=== PATIENT | female | born 1985 | race African-American/Black ===

== ENCOUNTER 2020-06-10 20:36 | Emergency (ER) | payer MEDICAID ==
[~2020-06-10] VITALS: Ht 170.2 cm; Wt 165.0 kg
[2020-06-10] MEDS ORDERED: KETOROLAC 30MG/ML VIAL IV STA (22:19)
[2020-06-10] MEDS ORDERED: ONDANSETRON HCL 4MG/2ML INJ IV STA (22:19)
[2020-06-10] MEDS ORDERED: SODIUM CHLORIDE 0.9% 1,000 ML IV ONE (22:19)
[2020-06-10] MEDS ORDERED: MORPHINE SULFATE 2 MG/ML CPJ (NOT FOR IM USE) IV ONE (22:30)
[2020-06-10 22:46] LABS: BASOPHILS % 0.8 % (0.0-2.0); EOSINOPHILS % 0.1 % (0.0-5.0); HEMATOCRIT. 41.6 % (36.0-48.0); HEMOGLOBIN. 14.3 g/dL (12.0-16.0); LYMPHOCYTES % 20.2 % (20.0-50.0); MEAN CORPUSCULAR HEMOGLOBIN 26.7 pg (28.0-32.0); MEAN CORPUSCULAR VOLUME 77.3 fL (81.0-99.0); MEAN PLATELET VOLUME 7.2 fl (7.4-10.4); MONOCYTES % 4.3 % (2.0-8.0); NEUTROPHILS % 74.6 % (40.0-76.0); PLATELET 390 x1000/uL (130-400); RED BLOOD CELL COUNT 5.38 mill/uL (4.2-5.4); RED CELL DISTRIBUTION WIDTH 13.9 % (11.6-14.6)
[2020-06-10 22:52] LABS: CHLORIDE 107 mEq/L (98-107)
[2020-06-10 22:56] LABS: INR 1.1; PROTHROMBIN TIME 11.2 sec (9.6-11.0)
[2020-06-10 23:03] LABS: HCG SCREEN NEGATIVE
[2020-06-10 23:35] LABS: CLARITY URINE CLEAR (CLEAR); COLOR URINE YELLOW (YELLOW); KETONES URINE TRACE (NEGATIVE); LEUKOCYTE ESTERASE URINE NEGATIVE (NEGATIVE); NITRITE URINE NEGATIVE (NEGATIVE); OCCULT BLOOD URINE 1+ (NEGATIVE); PH URINE 5.5 (4.5-8.0); PROTEIN URINE NEGATIVE (NEGATIVE); SPECIFIC GRAVITY URINE 1.019 (1.005-1.030)
[2020-06-11 01:55] VITALS: BP 117/59
== END 2020-06-11 02:22 | disposition home or self-care (01) ==
LOC: ER 20:36
DX: R10.84 Generalized abdominal pain (principal); R19.7 Diarrhea, unspecified; I10 Essential (primary) hypertension
CPT/HCPCS: 36415; 74021; 80053; 81003; 81025; 83690; 84703; 85025; 85610; 93005; 96361; 96374; 96375; 99285; J1885; J2270; J2405; J7030

== ENCOUNTER 2023-10-26 00:26 | Emergency (ER) | payer OTHER, MEDICAID ==
[~2023-10-26] VITALS: Ht 170.2 cm; Wt 120.0 kg
[2023-10-26 00:32] VITALS: O2SAT 96
[2023-10-26] MEDS ORDERED: DEXAMETHASONE 10 MG/ML VIAL IV ONE (01:15)
[2023-10-26] MEDS ORDERED: FAMOTIDINE 20MG/2ML VIAL IV ONE (01:15)
[2023-10-26] MEDS ORDERED: DIPHENHYDRAMINE 50MG/ML VIAL IV ONE (01:15)
[2023-10-26] MEDS: DEXAMETHASONE 10 MG/ML VIAL IV NR (05:16)
[2023-10-26] MEDS: DIPHENHYDRAMINE 50MG/ML VIAL IV NR (05:16)
[2023-10-26] MEDS: FAMOTIDINE 20MG/2ML VIAL IV NR (05:16)
[2023-10-26] MEDS ORDERED: LORA-985 PO (06:19)
[2023-10-26] MEDS ORDERED: P20 MT (06:19)
[2023-10-26 08:24] VITALS: BP 153/79; PULSE 55; RESP 14; TEMP 97.1
== END 2023-10-26 08:25 | disposition home or self-care (01) ==
LOC: ER 00:26
DX: T78.40XA Allergy, unspecified, initial encounter (principal); J45.909 Unspecified asthma, uncomplicated; I10 Essential (primary) hypertension; X58.XXXA Exposure to other specified factors, initial encounter
CPT/HCPCS: 99285; 96374; 96375; J1100; J1200; J3490